=== PATIENT | male | born 1950 | race Caucasian/White ===

== ENCOUNTER → 2016-12-20 | Outpatient (CLI) | payer MEDICARE, OTHER | LOC: HEART 5 14:08 | DX: J44.9 Chronic obstructive pulmonary disease, unspecified (principal) | CPT/HCPCS: 94010 ==

== ENCOUNTER → 2020-07-25 | Outpatient (CLI) | payer MEDICARE, OTHER | LOC: KOH-I 13:41 | DX: M79.672 Pain in left foot (principal); M79.671 Pain in right foot; M77.8 Other enthesopathies, not elsewhere classified; S93.332A Other subluxation of left foot, initial encounter; S93.331A Other subluxation of right foot, initial encounter; W19.XXXA Unspecified fall, initial encounter | CPT/HCPCS: 73630 ==